=== PATIENT | male | born 1985 | race Caucasian/White ===

== ENCOUNTER 2016-09-03 07:39 | Emergency (ER) | payer SELFPAY | END 2016-09-03 08:20 | disposition home or self-care (01) | LOC: NAV ERS 07:39 | DX: S10.96XA Insect bite of unspecified part of neck, initial encounter (principal); E86.0 Dehydration; F17.210 Nicotine dependence, cigarettes, uncomplicated; W57.XXXA Bitten or stung by nonvenomous insect and other nonvenomous arthropods, initial encounter | CPT/HCPCS: 99282 ==

== ENCOUNTER 2017-08-04 14:25 | Emergency (ER) | payer SELFPAY ==
--- NOTE | 2017-08-04 15:47 | CT ---
CT BRAIN WITHOUT CONTRAST: Comparison: None. History: Fall five days ago with headache and head trauma. Technique: Multiple contiguous axial images were obtained in a CT of the brain without contrast. FINDINGS: The brain is normal in morphology and attenuation without focal lesions or confluent areas of infarct ion. There is no evidence of hydrocephalus, intracranial hemorrhage or extraaxial fluid collection. The calvarium and overlying soft tissues are unremarkable. The visualized paranasal sinuses and masto id air cells are well aerated. IMPRESSION: No evidence of acute intracranial abnormality. POS: [facility]
== END 2017-08-04 15:54 | disposition home or self-care (01) ==
LOC: NAV ERS 14:25
DX: F07.81 Postconcussional syndrome (principal); F17.210 Nicotine dependence, cigarettes, uncomplicated; W17.89XA Other fall from one level to another, initial encounter
CPT/HCPCS: 70450